=== PATIENT | male | born 1965 | race Caucasian/White ===

== ENCOUNTER 2018-06-15 12:25 | Emergency (ER) | payer OTHER, BC ==
--- NOTE | 2018-06-15 12:51 | ED PDOC ---
HPI: Trauma/Fall - HPI Time Seen by Provider: 06/15/18 12:35 Chief Complaint (Nursing): Trauma Chief Complaint (Provider): Fall injury History Per: Patient History/Exam Limitations: no limitations Onset/Duration Of Symptoms: Hrs (Prior to arrival) Additional Complaint(s): Geovanna Gottlieb is a 52 year old male, with a past medical history of back problems, HTN, diabetes and hypercholesterolemia, who was brought to the emergency department by EMS after fall injury onset prior to arrival. Patient states he fell backwards at work with possible LOC after tripping on something. Patient is currently complaining of lower and upper back pain, and lower head pain. He doesn't take blood thinners. He denies any facial pain, vision changes, numbness or tingling, weakness, leg pain, neck pain, nausea, vomit, diarrhea, chest pain, shortness of breath, abdominal pain, dizziness or other medical complaints. No incontinence or constipation. PMD: Dr. Royal Past Medical History Reviewed: Historical Data, Nursing Documentation, Vital Signs Vital Signs: Last Vital Signs Temp 98 F 06/15/18 12:28 Pulse 98 H 06/15/18 12:28 Resp 17 06/15/18 12:28 BP 168/94 H 06/15/18 12:28 Pulse Ox 99 06/15/18 12:28 - Medical History PMH: Back Problems, Diabetes, HTN, Hypercholesterolemia - Surgical History Surgical History: Back Surgery - Family History Family History: States: Unknown Family Hx - Immunization History Hx Tetanus Toxoid Vaccination: No Hx Influenza Vaccination: No Hx Pneumococcal Vaccination: No - Home Medications Home Medications: Ambulatory Orders Medication Instructions Recorded Ciprofloxacin [Cipro] 500 mg PO BID #13 tab 06/01/13 Enalapril 06/01/13 Lipitor 06/01/13 Metformin 06/01/13 - Allergies Allergies/Adverse Reactions: Allergies Allergy/AdvReac Type Severity Reaction Status Date / Time No Known Allergies Allergy Unverified 06/01/13 09:07 Review of Systems ROS Statement: Except As Marked, All Systems Reviewed And Found Negative Eyes: Negative for: Vision Change Cardiovascular: Negative for: Chest Pain Respiratory: Negative for: Shortness of Breath Gastrointestinal: Negative for: Nausea, Vomiting, Abdominal Pain, Diarrhea Musculoskeletal: Positive for: Back Pain (lower and upper ). Negative for: Neck Pain, Leg Pain, Other (facial pain) Neurological: Positive for: Headache (lower). Negative for: Weakness, Numbness (tingling) Physical Exam - Reviewed Nursing Documentation Reviewed: Yes Vital Signs Reviewed: Yes - Physical Exam Head Exam: Positive for: ATRAUMATIC (No acute hematomas on head. No gross head trauma), NORMOCEPHALIC Skin: Positive for: Normal Color, Warm, Dry Eye Exam: Positive for: Normal appearance, EOMI, PERRL ENT: Positive for: Other (No loose teeth or facial tenderness) Neck: Positive for: Supple (in collar; nontender.) Cardiovascular/Chest: Positive for: Regular Rate, Rhythm. Negative for: Murmur Respiratory: Positive for: Normal Breath Sounds. Negative for: Respiratory Distress Gastrointestinal/Abdominal: Positive for: Normal Exam, Soft. Negative for: Tenderness, Guarding, Rebound, Other (ecchymosis) Back: Positive for: Other (Positive straight leg raise test at 60 on left, Negative on right. Mild tenderness to lumbar left and right lateral region. No acute hematomas on back) Extremity: Positive for: Normal ROM (Upper and lower extremities). Negative for: Tenderness, Deformity, Swelling Neurologic/Psych: Positive for: Alert, call center dispatcher II-XII, Oriented. Negative for: Motor/Sensory Deficits, Aphasia, Facial Droop - ECG O2 Sat by Pulse Oximetry: 99 (RA) Pulse Ox Interpretation: Normal - Radiology X-Ray: Read By Radiologist X-Ray Interpretation: No Acute Disease - CT Scan/US ct Other Rad Studies (CT/US): Read By Radiologist Other Rad Interpretation: no acute - Progress ED Course And Treament: 1359: Stable. AAOx3. Pain controlled. Fu with pcp. Ambulated with no issues. Medical Decision Making Medical Decision Making: Time: 12:35 Initial Impression: Fall injuries Initial Plan: --Cervical Spine w/o contrast [CT] --Head w/o contrast [CT] --Lumbar spine complete [RAD] --Tylenol 325mg tab 650 mg PO --Reevaluation 13:[address] FINDINGS: HEMORRHAGE: No intracranial hemorrhage. Focal hyperdense focus in a sulcus in the left frontal lobe (series 4, image 39) may represent a developmental venous anomaly. BRAIN: No mass effect or edema. No atrophy or chronic microvascular ischemic changes. VENTRICLES: Unremarkable. No hydrocephalus. CALVARIUM: Unremarkable. PARANASAL SINUSES: Unremarkable as visualized. No significant inflammatory changes. MASTOID AIR CELLS: Unremarkable as visualized. No inflammatory changes. OTHER FINDINGS: None. IMPRESSION: No acute intracranial pathology. Hyperdense focus in a left frontal lobe sulcus may represent a developmental venous anomaly. 13:[address] FINDINGS: VERTEBRAE: Vertebral bodies maintained in height. Normal alignment maintained. Atlantoaxial articulation and odontoid process are intact. DISCS/SPINAL CANAL/NEURAL FORAMINA: Degenerative disc disease at C5-6 with disc space narrowing and osteophytes. There is a disc bulge at C5-6 resulting in very mild central spinal stenosis. The remaining intervertebral disc spaces are maintained in height. PARASPINAL SOFT TISSUES: Unremarkable. OTHER FINDINGS: None. IMPRESSION: No fracture/dislocation. Degenerative disc disease at C5-6 with mild disc bulge and mild central spinal stenosis. Scribe Attestation: Documented by Bj Lopez, acting as a scribe for Grey Davis MD. Provider Scribe Attestation: All medical record entries made by the Scribe were at my direction and personally dictated by me. I have reviewed the chart and agree that the record accurately reflects my personal performance of the history, physical exam, medical decision making, and the department course for this patient. I have also personally directed, reviewed, and agree with the discharge instructions and disposition. Disposition - Clinical Impression Clinical Impression: Back injury, Head injury - Patient ED Disposition Is Patient to be Admitted: No Counseled Patient/Family Regarding: Studies Performed, Diagnosis, Need For Followup, Rx Given - Disposition Referrals: [facility] [Outside] - 06/16/18 Disposition: Routine/Home Disposition Time: 14:02 Condition: STABLE Additional Instructions: Return if not better in 3 days. Instructions: Closed Head Injury, Low Back Pain in Adults Forms: [employer] (Citizen Of [place]), [facility] ED School/Work Excuse
--- NOTE | 2018-06-15 13:22 | CT ---
Date of service: 06/15/2018 PROCEDURE: CT HEAD WITHOUT CONTRAST. HISTORY: headache COMPARISON: None available. TECHNIQUE: Axial computed tomography images were obtained through the head/brain without intravenous contrast. Radiation dose: Total exam DLP = 869.2 mGy-cm. This CT exam was performed using one or more of the following dose reduction techniques: Automated exposure control, adjustment of the mA and/or kV according to patient size, and/or use of iterative reconstruction technique. FINDINGS: HEMORRHAGE: No intracranial hemorrhage. Focal hyperdense focus in a sulcus in the left frontal lobe (series 4, image 39) may represent a developmental venous anomaly. BRAIN: No mass effect or edema. No atrophy or chronic microvascular ischemic changes. VENTRICLES: Unremarkable. No hydrocephalus. CALVARIUM: Unremarkable. PARANASAL SINUSES: Unremarkable as visualized. No significant inflammatory changes. MASTOID AIR CELLS: Unremarkable as visualized. No inflammatory changes. OTHER FINDINGS: None. IMPRESSION: No acute intracranial pathology. Hyperdense focus in a left frontal lobe sulcus may represent a developmental venous anomaly.
--- NOTE | 2018-06-15 13:37 | CT ---
Date of service: 06/15/2018 PROCEDURE: CT Cervical Spine without contrast HISTORY: neck pain COMPARISON: None available. TECHNIQUE: Axial computed tomography images were obtained of the cervical spine without the use of intravenous contrast. Coronal and sagittal reformatted images were created and reviewed. Radiation dose: Total exam DLP = 394.79 mGy-cm. This CT exam was performed using one or more of the following dose reduction techniques: Automated exposure control, adjustment of the mA and/or kV according to patient size, and/or use of iterative reconstruction technique. FINDINGS: VERTEBRAE: Vertebral bodies maintained in height. Normal alignment maintained. Atlantoaxial articulation and odontoid process are intact. DISCS/SPINAL CANAL/NEURAL FORAMINA: Degenerative disc disease at C5-6 with disc space narrowing and osteophytes. There is a disc bulge at C5-6 resulting in very mild central spinal stenosis. The remaining intervertebral disc spaces are maintained in height. PARASPINAL SOFT TISSUES: Unremarkable. OTHER FINDINGS: None. IMPRESSION: No fracture/dislocation. Degenerative disc disease at C5-6 with mild disc bulge and mild central spinal stenosis.
--- NOTE | 2018-06-15 13:54 | RAD ---
Date of service: 06/15/2018 PROCEDURE: Radiographs of the Lumbar Spine. HISTORY: back pain COMPARISON: No prior. FINDINGS: BONES: Normal alignment. No listhesis. No fracture. DISC SPACES: Mild narrowing at L4-5 with anterior endplate osteophytic changes OTHER FINDINGS: None. IMPRESSION: No acute fracture. Mild degenerative changes.
[2018-06-15 14:22] VITALS: BP 152/88; PULSE 81; RESP 16; TEMP 98; O2SAT 100
== END 2018-06-15 14:22 | disposition home or self-care (01) ==
LOC: H.ER 12:25
DX: S09.90XA Unspecified injury of head, initial encounter (principal); S39.92XA Unspecified injury of lower back, initial encounter; W19.XXXA Unspecified fall, initial encounter; Y99.0 Civilian activity done for income or pay; E11.9 Type 2 diabetes mellitus without complications; E78.00 Pure hypercholesterolemia, unspecified; I10 Essential (primary) hypertension; Z79.84 Long term (current) use of oral hypoglycemic drugs
CPT/HCPCS: 70450; 72114; 72125; 82948; 96372; 99284; J1885